=== PATIENT | female | born 1960 | race Caucasian/White ===

== ENCOUNTER 2016-11-08 13:53 | Outpatient (CLI) | payer OTHER ==
--- NOTE | 2016-11-08 16:23 | Ultrasound Report ---
THYROID ULTRASOUND: 11/08/2016 CLINICAL INDICATION: Palpable fullness right thyroid. TECHNIQUE: Real-time scanning was performed with solar sales representative and assessor static images obtained. FINDINGS: The right lobe measures 6.4 x 2.7 x 2.3 cm, and the left lobe measures 6.1 x 2.0 x 1.3 cm. The isthmus is enlarged, measuring 7 mm. In the lower pole of the right lobe, there is a heterogeneo us, predominantly hyperechoic nodule with peripheral vascularity, measuring 2.8 x 1.9 x 1.7 cm. Small cysts are also noted bilaterally. IMPRESSION: HETEROGENEOUS, PREDOMINANTLY HYPERECHOIC NODULE IN THE LOWER POLE OF THE RIGHT LOBE, SMILEY SURING 2.8 CM, WITH PERIPHERAL VASCULARITY. CONSIDER FINE NEEDLE ASPIRATION. JOB #: [id number] EXT JOB #:[id number]
== END 2016-11-08 13:54 | disposition home or self-care (01) ==
LOC: DI 13:53 → MERGE 14:45
PROVIDERS: ATTEND Physician Assistant
DX: E04.1 Nontoxic single thyroid nodule (principal)
CPT/HCPCS: 76536

== ENCOUNTER 2016-12-02 10:55 | Outpatient (CLI) | payer OTHER | END 2016-12-02 10:56 | disposition home or self-care (01) | LOC: SC 10:55 | PROVIDERS: ATTEND Internal Medicine Pulmonary Disease | DX: G47.33 Obstructive sleep apnea (adult) (pediatric) (principal) | CPT/HCPCS: 99203; 99212 ==

== ENCOUNTER 2016-12-31 07:34 | Day surgery (SDC) | payer MEDICARE, OTHER ==
[2016-12-31] MEDS ORDERED: LACTATED RINGERS 1,000 ML IV ONE (08:02)
[2016-12-31] MEDS ORDERED: MIDAZOLAM 2 MG/2 ML VIAL IVP ONE (09:05)
[2016-12-31] MEDS ORDERED: fentaNYL 100 MCG/2 ML VIAL IVP ONE (09:05)
[2016-12-31 09:51] VITALS: BP 103/62
== END 2016-12-31 07:35 | disposition home or self-care (01) ==
LOC: SDS 07:34
PROVIDERS: ATTEND Surgery
PROC: 0DBP8ZX Excision of Rectum, Via Natural or Artificial Opening Endoscopic, Diagnostic (ICD-10-PCS; principal; 2016-12-31 09:00)
DX: Z12.11 Encounter for screening for malignant neoplasm of colon (principal); K62.1 Rectal polyp; E11.9 Type 2 diabetes mellitus without complications; I10 Essential (primary) hypertension; J45.909 Unspecified asthma, uncomplicated; G47.30 Sleep apnea, unspecified; Z87.891 Personal history of nicotine dependence; Z79.84 Long term (current) use of oral hypoglycemic drugs; Z79.82 Long term (current) use of aspirin
CPT/HCPCS: 45380; J7120; 88305

== ENCOUNTER 2017-01-24 19:07 | Outpatient (CLI) | payer MEDICARE, OTHER | END 2017-01-24 19:08 | disposition home or self-care (01) | LOC: SC 19:07 | PROVIDERS: ATTEND Internal Medicine Pulmonary Disease | DX: G47.33 Obstructive sleep apnea (adult) (pediatric) (principal); G47.61 Periodic limb movement disorder | CPT/HCPCS: 95810 ==

== ENCOUNTER 2017-02-11 08:42 | Outpatient (CLI) | payer MEDICARE ==
[2017-02-11] MEDS ORDERED: BUFFERED LIDOCAINE 10 ML SYRINGE IU ONE (09:50)
[2017-02-11 10:19] VITALS: BP 106/66
--- NOTE | 2017-02-11 10:50 | Ultrasound Report ---
ULTRASOUND-GUIDED FINE-NEEDLE ASPIRATION RIGHT THYROID NODULE: 02/11/2017 CLINICAL INDICATION: Right thyroid nodule. FINDINGS: Following obtaining informed consent, the patient's right neck was prepped and draped in t he usual sterile fashion. The skin and soft tissues were anesthetized with lidocaine. Under ultraso und guidance, four 22-gauge fine-needle aspirations were performed. Needle washings were submitted t o Pathology. The patient tolerated the procedure well. No immediate complications. IMPRESSION: FINE-NEEDLE ASPIRATION RIGHT THYROID NODULE. AWAIT PATHOLOGY REPORT. JOB #: [id number] EXT JOB #:[id number]
== END 2017-02-11 08:43 | disposition home or self-care (01) ==
LOC: DI 08:42
PROVIDERS: ATTEND Physician Assistant
DX: E04.9 Nontoxic goiter, unspecified (principal)
CPT/HCPCS: 10022; 76942

== ENCOUNTER 2017-02-17 11:16 | Outpatient (CLI) | payer MEDICARE | END 2017-02-17 11:17 | disposition home or self-care (01) | LOC: SC 11:16 | PROVIDERS: ATTEND Nurse Practitioner Family | DX: G47.33 Obstructive sleep apnea (adult) (pediatric) (principal); G47.61 Periodic limb movement disorder | CPT/HCPCS: 99214; G0463; 99212 ==

== ENCOUNTER 2017-02-26 10:02 | Outpatient (CLI) | payer MEDICARE ==
[2017-02-26 13:23] LABS: BILIRUBIN,URINE NEGATIVE (NEGATIVE)
[2017-02-26 13:51] LABS: UR CULTURE IF IND INDICATED; WBC,URINE >25 /HPF (0-5)
== END 2017-02-26 10:03 | disposition home or self-care (01) ==
LOC: LAB.R 10:02
PROVIDERS: ATTEND Family Medicine
DX: N39.0 Urinary tract infection, site not specified (principal)
CPT/HCPCS: 81001; 87086

== ENCOUNTER 2017-03-12 15:01 | Outpatient (CLI) | payer OTHER ==
[2017-03-12 13:33] LABS: BASOPHILS % (AUTO) 0.6 %; EOSINOPHILS # (AUTO) 0.1 10^3/uL (0.0-0.7); EOSINOPHILS % (AUTO) 1.9 %; HCT - HEMATOCRIT 31.3 % (37.0-47.0); HGB - HEMOGLOBIN 10.4 g/dL (12.0-16.0); LYMPHOCYTES # (AUTO) 1.5 10^3/uL (1.5-3.5); MEAN CORPUSCULAR HEMOGLOBIN 28.4 pg (27.0-31.0); MEAN CORPUSCULAR HGB CONC 33.3 g/dL (32.0-36.0); MEAN CORPUSCULAR VOLUME 85.3 fL (81.0-99.0); MEAN PLATELET VOLUME 8.9 fL (7.9-10.8); MONOCYTES # (AUTO) 0.3 10^3/uL (0.0-1.0); MONOCYTES % (AUTO) 7.2 %; NEUTROPHILS # (AUTO) 2.4 10^3/uL (1.5-6.6); NEUTROPHILS % (AUTO) 55.3 %; RED BLOOD COUNT 3.67 10^6/uL (4.20-5.40); RED CELL DISTRIBUTION WIDTH 16.3 % (12.0-15.0); UNCORRECTED WHITE BLOOD COUNT 4.3 x10^3/uL; WHITE BLOOD COUNT 4.3 x10^3/uL (4.8-10.8)
[2017-03-12 14:12] LABS: THYROID STIMULATING HORMONE 0.53 uIU/mL (0.34-5.60)
[2017-03-12 14:21] LABS: ALBUMIN/GLOBULIN RATIO 1.3 (1.0-2.2); BILIRUBIN,TOTAL 0.3 mg/dL (0.2-1.0); BUN - BLOOD UREA NITROGEN 13 mg/dL (6-20); CALCIUM 9.9 mg/dL (8.5-10.3); CARBON DIOXIDE - CO2 24 mmol/L (21-32); CHLORIDE 106 mmol/L (101-111); CHOL/HDL RATIO 7.3 (<4.4); CHOLESTEROL 241 mg/dL; CREATININE 0.6 mg/dL (0.4-1.0); GFR - MDRD 104 (>89); GLUCOSE 151 mg/dL (70-100); HDL CHOLESTEROL 33 mg/dL; POTASSIUM 4.1 mmol/L (3.5-5.0); SODIUM 140 mmol/L (135-145); TOTAL PROTEIN 7.4 g/dL (6.7-8.2); TRIGLYCERIDES 381 mg/dL; VLDL CHOLESTEROL 76 mg/dL
== END 2017-03-12 15:02 | disposition home or self-care (01) ==
LOC: LAB.N 15:01
PROVIDERS: ATTEND Family Medicine
DX: Z51.81 Encounter for therapeutic drug level monitoring (principal); E78.5 Hyperlipidemia, unspecified; I10 Essential (primary) hypertension; F31.5 Bipolar disorder, current episode depressed, severe, with psychotic features
CPT/HCPCS: 36415; 80053; 80061; 84439; 84443; 85025

== ENCOUNTER 2017-03-30 20:35 | Outpatient (CLI) | payer MEDICARE | END 2017-03-30 20:36 | disposition home or self-care (01) | LOC: SC 20:35 | PROVIDERS: ATTEND Internal Medicine Pulmonary Disease | DX: G47.33 Obstructive sleep apnea (adult) (pediatric) (principal); Z68.29 Body mass index [BMI] 29.0-29.9, adult | CPT/HCPCS: 95811 ==

== ENCOUNTER 2017-04-14 08:46 | Outpatient (CLI) | payer MEDICARE ==
--- NOTE | 2017-04-14 15:29 | Mammography Report ---
DIGITAL DIAGNOSTIC BILATERAL MAMMOGRAM: 04/14/2017 CLINICAL INDICATION: A 56-year-old with lumpectomy and radiation therapy for left breast cancer. COMPARISON: Films from [place], [place], dated 03/23/2016, 07/10/2014, . TECHNIQUE: Bilateral CC, true lateral and MLO views, left spot magnification views. FINDINGS: The breasts again demonstrate scattered fibroglandular densities bilaterally. Postoperative and post-treatment changes are noted in the left breast. In the right outer posterior breast, there is a circumscribed 7 mm nodule, which is now palpable. Further evaluation with right breast ultrasound is recommended. IMPRESSION: INCOMPLETE EXAMINATION. RECOMMENDATION: ADDITIONAL EVALUATION OF THE PALPABLE ABNORMALITY IN THE RIGHT BREAST WITH ULTRASOUND. BIRADS CATEGORY 0-INCOMPLETE. STANDARD QUALIFYING STATEMENTS 1. This examination was reviewed with the aid of Computer-Aided Detection (CAD). 2. A negative or benign imaging report should not delay biopsy if clinically suspicious findings are present. Consider surgical consultation if warranted. More than 5% of cancers are not identified by imaging. 3. Dense breasts may obscure an underlying neoplasm. JOB #: [id number] EXT JOB #: [id number] CURT
== END 2017-04-14 08:47 | disposition home or self-care (01) ==
LOC: DI 08:46
PROVIDERS: ATTEND Internal Medicine Hematology & Oncology
DX: C50.112 Malignant neoplasm of central portion of left female breast (principal); N63.11 Unspecified lump in the right breast, upper outer quadrant
CPT/HCPCS: 77066

== ENCOUNTER 2017-04-16 09:44 | Outpatient (CLI) | payer MEDICARE ==
--- NOTE | 2017-04-16 14:30 | Ultrasound Report ---
RIGHT BREAST ULTRASOUND: 04/16/2017 CLINICAL INDICATION: Palpable abnormality, history of left breast cancer. COMPARISON: Mammogram of 04/14/2017. TECHNIQUE: Real-time scanning was performed with manufacturer representative static images obtained. FINDINGS: Ultrasound of the palpable abnormality identified by the patient was performed. At this site, there is a sebaceous cyst, measuring 6 x 5 x 4 mm. No sonographically suspicious findings are identified. IMPRESSION: SEBACEOUS CYST, ACCOUNTING FOR THE PALPABLE AND MAMMOGRAPHIC ABNORMALITY. RECOMMENDATION: ROUTINE ANNUAL MAMMOGRAPHY UNLESS OTHERWISE CLINICALLY INDICATED. BIRADS CATEGORY 2-BENIGN FINDINGS. MTDD
== END 2017-04-16 09:45 | disposition home or self-care (01) ==
LOC: DI 09:44
PROVIDERS: ATTEND Internal Medicine Hematology & Oncology
DX: N60.81 Other benign mammary dysplasias of right breast (principal); Z85.3 Personal history of malignant neoplasm of breast
CPT/HCPCS: 76642

== ENCOUNTER 2017-04-30 13:58 | Outpatient (CLI) | payer MEDICARE | END 2017-04-30 13:59 | disposition home or self-care (01) | LOC: SC 13:58 | PROVIDERS: ATTEND Nurse Practitioner Family | DX: G47.33 Obstructive sleep apnea (adult) (pediatric) (principal) | CPT/HCPCS: 99214; G0463; 99212 ==

== ENCOUNTER 2017-06-23 08:51 | Outpatient (CLI) | payer MEDICARE ==
[2017-06-23 13:13] LABS: ALBUMIN/GLOBULIN RATIO 1.2 (1.0-2.2); BILIRUBIN,TOTAL 0.7 mg/dL (0.2-1.0); CALCIUM 9.4 mg/dL (8.5-10.3); CREATININE 0.7 mg/dL (0.4-1.0); TOTAL PROTEIN 7.3 g/dL (6.7-8.2)
[2017-06-23 13:17] LABS: THYROID STIMULATING HORMONE 2.22 uIU/mL (0.34-5.60)
[2017-06-23 13:19] LABS: FREE T4 (FREE THYROXINE) 2.59 ng/dL (0.58-1.64)
[2017-06-23 13:26] LABS: HB2 TOTAL 11.3 g/dL; HEMOGLOBIN A1C 0.51 g/dL; HEMOGLOBIN A1C % 6.3 % (4.6-6.2)
== END 2017-06-23 08:52 | disposition home or self-care (01) ==
LOC: LAB.N 08:51
PROVIDERS: ATTEND Family Medicine
DX: E11.9 Type 2 diabetes mellitus without complications (principal); E78.5 Hyperlipidemia, unspecified; I10 Essential (primary) hypertension; E03.9 Hypothyroidism, unspecified
CPT/HCPCS: 36415; 80053; 83036; 84439; 84443; 84481

== ENCOUNTER 2017-07-17 13:10 | Outpatient (CLI) | payer MEDICARE | END 2017-07-17 13:11 | disposition home or self-care (01) | LOC: SC 13:10 | PROVIDERS: ATTEND Nurse Practitioner Family | DX: G47.33 Obstructive sleep apnea (adult) (pediatric) (principal) | CPT/HCPCS: 99214; G0463; 99212 ==

== ENCOUNTER 2017-07-21 17:40 | Outpatient (CLI) | payer MEDICARE ==
[2017-07-21 13:17] LABS: CALCIUM 10.6 mg/dL (8.5-10.3); CREATININE 0.8 mg/dL (0.4-1.0)
[2017-07-21 13:19] LABS: THYROID STIMULATING HORMONE 1.26 uIU/mL (0.34-5.60)
[2017-07-21 13:21] LABS: FREE T4 (FREE THYROXINE) 2.55 ng/dL (0.58-1.64)
== END 2017-07-21 17:41 | disposition home or self-care (01) ==
LOC: LAB.N 17:40
PROVIDERS: ATTEND Family Medicine
DX: E05.90 Thyrotoxicosis, unspecified without thyrotoxic crisis or storm (principal); E04.9 Nontoxic goiter, unspecified; E87.6 Hypokalemia
CPT/HCPCS: 36415; 80048; 81599; 84439; 84443; 84445; 84481; 86376; 86800

== ENCOUNTER 2017-08-04 13:39 | Outpatient (CLI) | payer MEDICARE ==
[2017-08-04 19:34] LABS: THYROID STIMULATING HORMONE 0.95 uIU/mL (0.34-5.60)
[2017-08-04 19:36] LABS: FREE T4 (FREE THYROXINE) 0.6 ng/dL (0.58-1.64)
== END 2017-08-04 13:40 | disposition home or self-care (01) ==
LOC: LAB.N 13:39
PROVIDERS: ATTEND Internal Medicine Endocrinology, Diabetes & Metabolism
DX: R94.6 Abnormal results of thyroid function studies (principal)
CPT/HCPCS: 36415; 84439; 84443; 84481

== ENCOUNTER 2017-09-12 08:00 | Outpatient (CLI) | payer MEDICARE ==
[2017-09-12 18:47] LABS: BILIRUBIN,URINE NEGATIVE (NEGATIVE); GLUCOSE, URINE (UA) >=1000 mg/dL (NEGATIVE); KETONES,URINE (UA) 15 mg/dL (NEGATIVE); LEUKOCYTE ESTERASE, URINE NEGATIVE (NEGATIVE); NITRITE,URINE POSITIVE (NEGATIVE); OCCULT BLOOD,URINE TRACE-INTA (NEGATIVE); PROTEIN,URINE NEGATIVE (NEGATIVE); UROBILINOGEN,URINE 0.2 (NORMAL) E.U./dL (NORMAL)
[2017-09-12 19:05] LABS: BACTERIA,URINE Moderate /HPF (None Seen); CLARITY,URINE CLOUDY (CLEAR); SQUAMOUS EPITHELIAL CELL,UR RARE Squamous (<= Few)
== END 2017-09-12 08:01 | disposition home or self-care (01) ==
LOC: LAB.R 08:00
PROVIDERS: ATTEND Nurse Practitioner
DX: N39.0 Urinary tract infection, site not specified (principal); R30.0 Dysuria; R81 Glycosuria
CPT/HCPCS: 81001; 87077; 87086

== ENCOUNTER 2017-09-16 22:32 | Emergency (ER) | payer MEDICARE ==
[2017-09-16 23:04] LABS: BASOPHILS # (AUTO) 0.1 10^3/uL (0.0-0.1); BASOPHILS % (AUTO) 1.1 %; EOSINOPHILS # (AUTO) 0.1 10^3/uL (0.0-0.7); EOSINOPHILS % (AUTO) 1.5 %; HGB - HEMOGLOBIN 10.8 g/dL (12.0-16.0); LYMPHOCYTES # (AUTO) 1.6 10^3/uL (1.5-3.5); LYMPHOCYTES % (AUTO) 33.6 %; MEAN CORPUSCULAR HEMOGLOBIN 27.4 pg (27.0-31.0); MEAN CORPUSCULAR HGB CONC 32.6 g/dL (32.0-36.0); MEAN PLATELET VOLUME 8.8 fL (7.9-10.8); MONOCYTES # (AUTO) 0.3 10^3/uL (0.0-1.0); MONOCYTES % (AUTO) 7.3 %; NEUTROPHILS # (AUTO) 2.7 10^3/uL (1.5-6.6); NEUTROPHILS % (AUTO) 56.5 %; PLT - PLATELET COUNT 208 10^3/uL (130-450); RED BLOOD COUNT 3.96 10^6/uL (4.20-5.40); RED CELL DISTRIBUTION WIDTH 16.4 % (12.0-15.0); WHITE BLOOD COUNT 4.8 x10^3/uL (4.8-10.8)
[2017-09-16 23:05] LABS: VBG PCO2 45.1 mmHg (41-51); VBG PH 7.411 (7.31-7.41)
[2017-09-16 23:06] LABS: VBG BASE EXCESS 2.9 mmol/L (-2 - +2); VBG PO2 37.8 mmHg (25-47); VBG TOTAL CO2 29.4 mmol/L (24-29)
[2017-09-16] MEDS ORDERED: SODIUM CHLORIDE 0.9% 1,000 ML IV ONE (23:08)
[2017-09-16 23:13] LABS: KETONES, SERUM (ACETEST) NEGATIVE (NEGATIVE)
[2017-09-16 23:17] LABS: ALBUMIN 3.9 g/dL (3.2-5.5); ALBUMIN/GLOBULIN RATIO 1.1 (1.0-2.2); ALKALINE PHOSPHATASE 65 IU/L (42-121); ALT ALANINE AMINOTRANSFERASE 32 IU/L (10-60); AST ASPARTATE AMINOTRANSFERASE 54 IU/L (10-42); BILIRUBIN,TOTAL 0.5 mg/dL (0.2-1.0); BUN - BLOOD UREA NITROGEN 13 mg/dL (6-20); CALCIUM 9.6 mg/dL (8.5-10.3); CARBON DIOXIDE - CO2 28 mmol/L (21-32); CHLORIDE 91 mmol/L (101-111); CREATININE 0.7 mg/dL (0.4-1.0); GFR - MDRD 87 (>89); GLUCOSE 405 mg/dL (70-100); LIPASE 38 U/L (22-51); SODIUM 131 mmol/L (135-145); TOTAL PROTEIN 7.3 g/dL (6.7-8.2)
[2017-09-16] MEDS ORDERED: INSULIN REGULAR HUMAN 100 UNIT/1 ML 10 ML MDV IVP STA (23:43)
[2017-09-17] MEDS ORDERED: SODIUM CHLORIDE 0.9% 1,000 ML IV ONE (01:22)
[2017-09-17] MEDS ORDERED: INSULIN REGULAR HUMAN 100 UNIT/1 ML 10 ML MDV IVP STA (01:22)
--- NOTE | 2017-09-17 01:22 | ED Physician Documentation ---
History of Present Illness - Stated complaint Stated Complaint: HIGH BLOOD SUGAR - Chief complaint Chief Complaint: General - History obtained from History obtained from: Patient, Family - History of Present Illness Timing: How many days ago (5) - Additonal information Additional information: 56-year-old type II diabetic has developed elevated blood sugar in the 500 range for the past 5 days. She is now not feeling well. She is feeling lightheaded and dizzy. She has had urinary tract infection and has been placed on antibiotic and she is taking metformin as well. She is not on insulin she is not on any other oral agents. She has been drinking a lot of water. Review of Systems Constitutional: reports: Fatigue. denies: Fever Eyes: denies: Decreased vision Ears: denies: Ear pain Nose: denies: Rhinorrhea / runny nose, Congestion Throat: denies: Sore throat Cardiac: denies: Chest pain / pressure, Palpitations Respiratory: denies: Dyspnea, Cough GI: denies: Abdominal Pain, Nausea, Vomiting : reports: Dysuria Skin: denies: Rash Musculoskeletal: denies: Neck pain, Back pain, Extremity pain Neurologic: reports: Generalized weakness, Near syncope. denies: Focal weakness , Numbness PD PAST MEDICAL HISTORY - Past Medical History Past Medical History: Yes Cardiovascular: Hypertension, High cholesterol Endocrine/Autoimmune: Type 2 diabetes Psych: Bipolar disorder - Past Surgical History /BACKGROUND CHECK COORDINATOR: section, Tubal ligation, Hysterectomy, Other - Present Medications Home Medications: Ambulatory Orders Medication Instructions Recorded Confirmed Acyclovir 200 mg PO DAILY 12/24/16 05/13/17 Aspirin [Aspirin EC] 81 mg PO DAILY 12/24/16 05/13/17 Benztropine Mesylate 1 mg PO BID 12/24/16 05/13/17 Biotin 10,000 mcg PO DAILY 12/24/16 05/13/17 Bupropion HCl [Bupropion Xl] 1 tab ORAL DAILY 12/24/16 05/13/17 Cholecalciferol [Vitamin D3] 5,000 unit PO DAILY 12/24/16 05/13/17 Cranberry Fruit Extract [Cranberry] 4,200 mg PO DAILY 12/24/16 05/13/17 Fenofibrate 160 mg PO DAILY 12/24/16 05/13/17 Fluticasone [Flonase] 1 sprays AARON DAILY 12/24/16 05/13/17 Gemfibrozil 600 mg PO BID 12/24/16 05/13/17 Krill/[place]-3/Dha/Epa/Lipids 1,085 mg PO DAILY 12/24/16 05/13/17 [Krill Oil 300 mg Softgel] Metformin HCl 1,000 mg PO BID 12/24/16 05/13/17 Oxcarbazepine [Trileptal] 600 mg PO BID 12/24/16 05/13/17 clonazePAM [Clonazepam] 1 mg PO PRN PRN 12/24/16 05/13/17 hydroCHLOROthiazide 25 mg PO DAILY 12/24/16 05/13/17 [Hydrochlorothiazide] risperiDONE [Risperidone] 3 mg PO BID 12/24/16 05/13/17 Anastrozole 1 mg PO DAILY 02/25/17 05/13/17 Metoprolol Succinate/Hctz 1 tab PO DAILY 05/13/17 05/13/17 [Metoprolol ER-Hctz 50-12.5 mg] Blood Sugar Diagnostic [Glucose 1 each MC DAILY #50 strip 09/17/17 Test Strip] - Allergies Allergies/Adverse Reactions: Allergies Allergy/AdvReac Type Severity Reaction Status Date / Time meperidine HCl * AdvReac Itching Verified 12/31/16 08:00 [From Demerol] - Social History Does the pt smoke?: No Smoking Status: Never smoker Does the pt drink ETOH?: No Does the pt have substance abuse?: No - Immunizations Immunizations are current?: Yes PD ED PE NORMAL - Vitals Vital signs reviewed: Yes (Tachycardic) - General General: Alert and oriented X 3, No acute distress, Well developed/nourished - HEENT HEENT: Atraumatic, PERRL, EOMI, Ears normal, Other (Dry mucous membranes) - Neck Neck: Supple, no meningeal sign, No bony TTP - Cardiac Cardiac: No murmur, Other (Tachycardic and regular) - Respiratory Respiratory: No respiratory distress, Clear bilaterally - Abdomen Abdomen: Soft, Non tender - Back Back: No CVA TTP, No spinal TTP - Derm Derm: Normal color, Warm and dry, No rash - Extremities Extremities: No deformity, No edema - Neuro Neuro: No motor deficit, No sensory deficit Eye Opening: Spontaneous Motor: Obeys Commands Verbal: Oriented GCS Score: 15 - Psych Psych: Normal mood, Normal affect Results - Vitals Vitals: Vital Signs - 24 hr 09/16/17 09/16/17 09/17/17 22:35 23:38 01:37 Temperature 36.1 C L Heart Rate 104 H 95 96 Respiratory 18 25 H 18 Rate Blood Pressure 120/65 116/70 126/73 O2 Saturation 98 97 97 09/17/17 02:36 Temperature Heart Rate 95 Respiratory 16 Rate Blood Pressure 113/68 O2 Saturation 98 Oxygen O2 Source Room air - Labs Labs: Laboratory Tests 09/16/17 09/16/17 09/16/17 22:44 22:56 22:56 WBC 4.8 RBC 3.96 L Hgb 10.8 L Hct 33.2 L MCV 84.0 MCH 27.4 MCHC 32.6 RDW 16.4 H Plt Count 208 MPV 8.8 Neut # 2.7 Lymph # 1.6 [place] # 0.3 Eos # 0.1 Baso # 0.1 Absolute Nucleated RBC 0.00 Nucleated RBC % 0.1 VBG pH VBG pCO2 VBG pO2 VBG HCO3 VBG Total CO2 VBG O2 Saturation VBG Base Excess Sodium 131 L Potassium 3.1 L Chloride 91 L Carbon Dioxide 28 Anion Gap 12.0 BUN 13 Creatinine 0.7 Estimated GFR (MDRD) 87 L Glucose 405 H POC Whole Bld Glucose 416 H Calcium 9.6 Total Bilirubin 0.5 AST 54 H ALT 32 Alkaline Phosphatase 65 Total Protein 7.3 Albumin 3.9 Globulin 3.4 Albumin/Globulin Ratio 1.1 Lipase 38 Urine Color Urine Clarity Urine pH Ur Specific [place] Urine Protein Urine Glucose (UA) Urine Ketones Urine Occult Blood Urine Nitrite Urine Bilirubin Urine Urobilinogen Ur Leukocyte Esterase Ur Microscopic Review Urine Culture Comments Serum Ketones NEGATIVE 09/16/17 09/17/17 09/17/17 22:56 01:19 02:33 WBC RBC Hgb Hct MCV MCH MCHC RDW Plt Count MPV Neut # Lymph # [place] # Eos # Baso # Absolute Nucleated RBC Nucleated RBC % VBG pH 7.411 H VBG pCO2 45.1 VBG pO2 37.8 VBG HCO3 28.0 VBG Total CO2 29.4 H VBG O2 Saturation 73.7 VBG Base Excess 2.9 H Sodium Potassium Chloride Carbon Dioxide Anion Gap BUN Creatinine Estimated GFR (MDRD) Glucose POC Whole Bld Glucose 224 H 140 H Calcium Total Bilirubin AST ALT Alkaline Phosphatase Total Protein Albumin Globulin Albumin/Globulin Ratio Lipase Urine Color Urine Clarity Urine pH Ur Specific [place] Urine Protein Urine Glucose (UA) Urine Ketones Urine Occult Blood Urine Nitrite Urine Bilirubin Urine Urobilinogen Ur Leukocyte Esterase Ur Microscopic Review Urine Culture Comments Serum Ketones 09/17/17 02:40 WBC RBC Hgb Hct MCV MCH MCHC RDW Plt Count MPV Neut # Lymph # [place] # Eos # Baso # Absolute Nucleated RBC Nucleated RBC % VBG pH VBG pCO2 VBG pO2 VBG HCO3 VBG Total CO2 VBG O2 Saturation VBG Base Excess Sodium Potassium Chloride Carbon Dioxide Anion Gap BUN Creatinine Estimated GFR (MDRD) Glucose POC Whole Bld Glucose Calcium Total Bilirubin AST ALT Alkaline Phosphatase Total Protein Albumin Globulin Albumin/Globulin Ratio Lipase Urine Color YELLOW Urine Clarity CLEAR Urine pH 7.0 Ur Specific [place] 1.015 Urine Protein NEGATIVE Urine Glucose (UA) >=1000 H Urine Ketones TRACE Urine Occult Blood NEGATIVE Urine Nitrite NEGATIVE Urine Bilirubin NEGATIVE Urine Urobilinogen 0.2 (NORMAL) Ur Leukocyte Esterase NEGATIVE Ur Microscopic Review NOT INDICATED Urine Culture Comments NOT INDICATED Serum Ketones Procedures - IVC sono (time) 0010 Bedside IVC sono: IVC measures (cm) (0.77), Significant dehydration (est 3 liter deficit) PD MEDICAL DECISION MAKING - ED course Complexity details: reviewed results, re-evaluated patient, considered differential, d/w patient ED course: 56-year-old type II diabetic with markedly elevated blood sugar has developed hyperglycemic-induced hypovolemia. She is administered normal saline and insulin in 2 separate aliquots of 1 L of saline and 10 units of regular insulin intravenously. Her blood sugar comes down nicely to the 140 range. 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
[2017-09-17 02:37] VITALS: BP 113/68
[2017-09-17 02:55] LABS: BILIRUBIN,URINE NEGATIVE (NEGATIVE); GLUCOSE, URINE (UA) >=1000 mg/dL (NEGATIVE); KETONES,URINE (UA) TRACE mg/dL (NEGATIVE); LEUKOCYTE ESTERASE, URINE NEGATIVE (NEGATIVE); NITRITE,URINE NEGATIVE (NEGATIVE); OCCULT BLOOD,URINE NEGATIVE (NEGATIVE); PROTEIN,URINE NEGATIVE (NEGATIVE); UROBILINOGEN,URINE 0.2 (NORMAL) E.U./dL (NORMAL)
[2017-09-17 03:03] LABS: CLARITY,URINE CLEAR (CLEAR)
== END 2017-09-17 03:14 | disposition home or self-care (01) ==
LOC: ED 22:32
DX: E86.0 Dehydration (principal); E11.65 Type 2 diabetes mellitus with hyperglycemia; I10 Essential (primary) hypertension; E78.00 Pure hypercholesterolemia, unspecified; Z79.82 Long term (current) use of aspirin; Z79.84 Long term (current) use of oral hypoglycemic drugs
CPT/HCPCS: 36415; 80053; 81003; 82009; 82803; 83690; 85025; 96360; 96361; 99284; J1815; 81001; 87086

== ENCOUNTER 2017-09-24 13:17 | Outpatient (CLI) | payer MEDICARE ==
[2017-09-24 19:12] LABS: CALCIUM 9.8 mg/dL (8.5-10.3); CREATININE 0.5 mg/dL (0.4-1.0)
[2017-09-24 19:20] LABS: HEMOGLOBIN A1C 0.79 g/dL; HEMOGLOBIN A1C % 8.2 % (4.6-6.2)
== END 2017-09-24 13:18 | disposition home or self-care (01) ==
LOC: LAB.N 13:17
PROVIDERS: ATTEND Family Medicine
DX: E11.9 Type 2 diabetes mellitus without complications (principal); Z79.4 Long term (current) use of insulin
CPT/HCPCS: 36415; 80048; 83036

== ENCOUNTER 2017-10-22 13:17 | Outpatient (CLI) | payer MEDICARE | END 2017-10-22 13:18 | disposition home or self-care (01) | LOC: SC 13:17 | PROVIDERS: ATTEND Nurse Practitioner Family | DX: G47.33 Obstructive sleep apnea (adult) (pediatric) (principal); I10 Essential (primary) hypertension; E11.9 Type 2 diabetes mellitus without complications; F39 Unspecified mood [affective] disorder; F41.8 Other specified anxiety disorders | CPT/HCPCS: 99214; G0463; 99212 ==

== ENCOUNTER 2017-12-25 10:20 | Outpatient (CLI) | payer MEDICARE ==
[2017-12-25 12:45] LABS: CALCIUM 10.1 mg/dL (8.5-10.3); CREATININE 0.6 mg/dL (0.4-1.0)
[2017-12-25 12:56] LABS: HB2 TOTAL 12.1 g/dL; HEMOGLOBIN A1C 0.51 g/dL
== END 2017-12-25 10:21 ==
LOC: LAB.N 10:20
PROVIDERS: ATTEND Family Medicine
DX: E11.65 Type 2 diabetes mellitus with hyperglycemia (principal)
CPT/HCPCS: 36415; 80048; 83036

== ENCOUNTER 2018-04-15 12:47 | Outpatient (CLI) | payer MEDICARE ==
[2018-04-15 13:27] LABS: HB2 TOTAL 11.7 g/dL; HEMOGLOBIN A1C 0.57 g/dL; HEMOGLOBIN A1C % 6.6 % (4.6-6.2)
[2018-04-15 13:33] LABS: ALBUMIN 4.1 g/dL (3.2-5.5); ALBUMIN/GLOBULIN RATIO 1.3 (1.0-2.2); ALKALINE PHOSPHATASE 67 IU/L (42-121); ALT ALANINE AMINOTRANSFERASE 24 IU/L (10-60); AST ASPARTATE AMINOTRANSFERASE 25 IU/L (10-42); BILIRUBIN,TOTAL 0.6 mg/dL (0.2-1.0); BUN - BLOOD UREA NITROGEN 10 mg/dL (6-20); CALCIUM 9.3 mg/dL (8.5-10.3); CARBON DIOXIDE - CO2 25 mmol/L (21-32); CHLORIDE 103 mmol/L (101-111); CHOL/HDL RATIO 6.6 (<4.4); CHOLESTEROL 226 mg/dL; CREATININE 0.4 mg/dL (0.4-1.0); GFR - MDRD 166 (>89); GLUCOSE 165 mg/dL (70-100); HDL CHOLESTEROL 34 mg/dL; LDL CHOLESTEROL,CALCULATED 114 mg/dL; LDL/HDL RATIO 3.4 (<4.4); SODIUM 139 mmol/L (135-145); TOTAL PROTEIN 7.3 g/dL (6.7-8.2); VLDL CHOLESTEROL 78 mg/dL
== END 2018-04-15 12:48 ==
LOC: LAB.N 12:47
PROVIDERS: ATTEND Family Medicine
DX: E78.1 Pure hyperglyceridemia (principal); E11.9 Type 2 diabetes mellitus without complications
CPT/HCPCS: 36415; 80053; 80061; 83036; 83721

== ENCOUNTER 2018-05-20 12:40 | Outpatient (CLI) | payer MEDICARE ==
--- NOTE | 2018-05-20 13:17 | Mammography Report ---
Reason: L BREAST CANCER Procedure Date: 05/20/2018 Accession Number: [id number] / [id number] Procedure: JONAH - Diagnostic Dig Bilat CPT Code: FULL RESULT: EXAM: Diagnostic Dig Bilat DATE: 05/20/2018 1:10 PM CLINICAL HISTORY: History of treated left breast cancer in 2016 status post lumpectomy for post lumpectomy surveillance. Screening right breast mammogram. TECHNIQUE: Bilateral CC and MLO views were obtained. COMPARISON: 04/14/2017 FINDINGS: The breasts demonstrate scattered fibroglandular densities bilaterally. Left breast: There are stable and expected post lumpectomy changes from the posterior lateral left breast; there is stable mild skin thickening consistent with post treatment changes. There are no suspicious masses, calcifications or areas of nonoperative distortion. Right breast: There are no suspicious masses, calcifications or areas of distortion. IMPRESSION: Stable and expected post lumpectomy changes left breast; negative right breast. Benign findings. RECOMMENDATION: 1. Left breast: Diagnostic mammogram in one year is recommended to continue postlumpectomy surveillance protocol. This can be performed to coincide with contralateral screening. 2. Right breast: Annual screening mammogram. BI-RADS CATEGORY 2: Benign findings STANDARD QUALIFYING STATEMENTS: 1. This examination was not reviewed with the aid of Computer-Aided Detection (CAD). 2. A negative or benign imaging report should not preclude biopsy if clinically suspicious findings are present. 3. Dense breasts may obscure an underlying neoplasm. 4. This examination was reviewed with the aid of 3D breast imaging (tomosynthesis).
== END 2018-05-20 12:41 | disposition home or self-care (01) ==
LOC: DI 12:40
PROVIDERS: ATTEND Internal Medicine Hematology & Oncology
DX: C50.912 Malignant neoplasm of unspecified site of left female breast (principal)
CPT/HCPCS: 77066

== ENCOUNTER 2018-05-27 14:55 | Outpatient (CLI) | payer MEDICARE | END 2018-05-27 23:59 | disposition home or self-care (01) | LOC: RT.N 14:55 | PROVIDERS: ATTEND Family Medicine | DX: R00.2 Palpitations (principal) | CPT/HCPCS: 93005 ==

== ENCOUNTER 2018-05-28 08:00 | Outpatient (CLI) | payer MEDICARE ==
[2018-05-28 12:24] LABS: ALBUMIN 4.2 g/dL (3.2-5.5); ALBUMIN/GLOBULIN RATIO 1.4 (1.0-2.2); BILIRUBIN,TOTAL 0.6 mg/dL (0.2-1.0); CALCIUM 9.4 mg/dL (8.5-10.3); CREATININE 0.6 mg/dL (0.4-1.0); TOTAL PROTEIN 7.2 g/dL (6.7-8.2)
[2018-05-28 12:36] LABS: BASOPHILS % (AUTO) 0.7 %; EOSINOPHILS # (AUTO) 0.2 10^3/uL (0.0-0.7); EOSINOPHILS % (AUTO) 2.9 %; HGB - HEMOGLOBIN 11.4 g/dL (12.0-16.0); LYMPHOCYTES # (AUTO) 1.8 10^3/uL (1.5-3.5); LYMPHOCYTES % (AUTO) 31.9 %; MEAN CORPUSCULAR HEMOGLOBIN 26.6 pg (27.0-31.0); MEAN CORPUSCULAR HGB CONC 32.8 g/dL (32.0-36.0); MEAN CORPUSCULAR VOLUME 81.2 fL (81.0-99.0); MEAN PLATELET VOLUME 9.4 fL (7.9-10.8); MONOCYTES # (AUTO) 0.4 10^3/uL (0.0-1.0); MONOCYTES % (AUTO) 7.3 %; NEUTROPHILS # (AUTO) 3.2 10^3/uL (1.5-6.6); NEUTROPHILS % (AUTO) 57.2 %; PLT - PLATELET COUNT 220 10^3/uL (130-450); RED BLOOD COUNT 4.26 10^6/uL (4.20-5.40); RED CELL DISTRIBUTION WIDTH 16.1 % (12.0-15.0); WHITE BLOOD COUNT 5.6 x10^3/uL (4.8-10.8)
[2018-05-28 12:48] LABS: THYROID STIMULATING HORMONE 1.71 uIU/mL (0.34-5.60)
[2018-05-28 12:50] LABS: FREE T4 (FREE THYROXINE) 0.56 ng/dL (0.58-1.64)
== END 2018-05-28 23:59 | disposition home or self-care (01) ==
LOC: LAB.N 08:00
PROVIDERS: ATTEND Family Medicine
DX: R00.2 Palpitations (principal); E05.90 Thyrotoxicosis, unspecified without thyrotoxic crisis or storm; E11.9 Type 2 diabetes mellitus without complications
CPT/HCPCS: 36415; 80053; 84439; 84443; 84481; 85025

== ENCOUNTER 2018-07-17 08:40 | Outpatient (CLI) | payer MEDICARE ==
[2018-07-17 13:34] LABS: BASOPHILS % (AUTO) 0.6 %; EOSINOPHILS # (AUTO) 0.2 10^3/uL (0.0-0.7); EOSINOPHILS % (AUTO) 2.7 %; HGB - HEMOGLOBIN 11.4 g/dL (12.0-16.0); LYMPHOCYTES # (AUTO) 1.6 10^3/uL (1.5-3.5); LYMPHOCYTES % (AUTO) 28.4 %; MEAN CORPUSCULAR HEMOGLOBIN 25.9 pg (27.0-31.0); MEAN CORPUSCULAR HGB CONC 31.9 g/dL (32.0-36.0); MEAN PLATELET VOLUME 9.4 fL (7.9-10.8); MONOCYTES # (AUTO) 0.4 10^3/uL (0.0-1.0); MONOCYTES % (AUTO) 6.9 %; NEUTROPHILS # (AUTO) 3.6 10^3/uL (1.5-6.6); NEUTROPHILS % (AUTO) 61.4 %; PLT - PLATELET COUNT 196 10^3/uL (130-450); RED BLOOD COUNT 4.41 10^6/uL (4.20-5.40); RED CELL DISTRIBUTION WIDTH 16.2 % (12.0-15.0); WHITE BLOOD COUNT 5.8 x10^3/uL (4.8-10.8)
[2018-07-17 14:26] LABS: ALBUMIN/GLOBULIN RATIO 1.2 (1.0-2.2); BILIRUBIN,TOTAL 0.6 mg/dL (0.2-1.0); CALCIUM 9.5 mg/dL (8.5-10.3); CREATININE 0.5 mg/dL (0.4-1.0); TOTAL PROTEIN 7.3 g/dL (6.7-8.2)
[2018-07-17 15:00] LABS: HB2 TOTAL 12.3 g/dL; HEMOGLOBIN A1C 0.54 g/dL; HEMOGLOBIN A1C % 6.2 % (4.6-6.2)
== END 2018-07-17 23:59 | disposition home or self-care (01) ==
LOC: LAB.N 08:40
PROVIDERS: ATTEND Physician Assistant Medical
DX: E11.9 Type 2 diabetes mellitus without complications (principal); E78.5 Hyperlipidemia, unspecified; I10 Essential (primary) hypertension; E03.9 Hypothyroidism, unspecified
CPT/HCPCS: 36415; 80053; 83036; 84443; 85025

== ENCOUNTER 2018-08-10 08:58 | Outpatient (CLI) | payer MEDICARE | END 2018-08-10 08:59 | disposition home or self-care (01) | LOC: SC 08:58 | PROVIDERS: ATTEND Nurse Practitioner Family | DX: G47.33 Obstructive sleep apnea (adult) (pediatric) (principal); G47.00 Insomnia, unspecified | CPT/HCPCS: 99214; G0463; 99212 ==

== ENCOUNTER 2018-10-27 08:00 | Outpatient (CLI) | payer MEDICARE ==
[2018-10-27 14:23] LABS: HB2 TOTAL 11.7 g/dL; HEMOGLOBIN A1C 0.61 g/dL; HEMOGLOBIN A1C % 6.9 % (4.6-6.2)
== END 2018-10-27 23:59 | disposition home or self-care (01) ==
LOC: LAB.N 08:00
PROVIDERS: ATTEND Physician Assistant Medical
DX: E11.9 Type 2 diabetes mellitus without complications (principal); Z79.4 Long term (current) use of insulin
CPT/HCPCS: 36415; 83036

== ENCOUNTER 2018-11-13 09:43 | Outpatient (CLI) | payer MEDICARE, OTHER | END 2018-11-13 09:44 | disposition home or self-care (01) | LOC: NS 09:43 | PROVIDERS: ATTEND Physician Assistant Medical | DX: Z71.3 Dietary counseling and surveillance (principal); E11.9 Type 2 diabetes mellitus without complications; E78.2 Mixed hyperlipidemia; E66.9 Obesity, unspecified; Z68.30 Body mass index [BMI] 30.0-30.9, adult | CPT/HCPCS: 97802 ==

== ENCOUNTER 2018-11-18 19:46 | Emergency (ER) | payer OTHER, MEDICARE ==
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
[2018-11-18] MEDS ORDERED: METHOCARBAMOL 500 MG TABLET PO STA (21:11)
[2018-11-18] MEDS ORDERED: HYDROcod/ACETAM 5/325 MG TABLET PO STA (21:11)
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
[2018-11-18] MEDS ORDERED: HYDROcod/ACET 5/325 Prepack 4 PO STA (22:26)
[2018-11-18 22:47] VITALS: BP 110/70
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
== END 2018-11-18 22:45 | disposition home or self-care (01) ==
LOC: ED 19:46
DX: S23.3XXA Sprain of ligaments of thoracic spine, initial encounter (principal); S16.1XXA Strain of muscle, fascia and tendon at neck level, initial encounter; V49.49XA Driver injured in collision with other motor vehicles in traffic accident, initial encounter; Y92.410 Unspecified street and highway as the place of occurrence of the external cause; I10 Essential (primary) hypertension; E78.00 Pure hypercholesterolemia, unspecified; G47.30 Sleep apnea, unspecified; E11.9 Type 2 diabetes mellitus without complications; E05.90 Thyrotoxicosis, unspecified without thyrotoxic crisis or storm; Z79.82 Long term (current) use of aspirin; Z79.4 Long term (current) use of insulin
CPT/HCPCS: 72125; 72128; 99283; A9270

== ENCOUNTER 2018-12-24 12:53 | Outpatient (CLI) | payer MEDICARE | END 2018-12-24 12:54 | disposition home or self-care (01) | LOC: NS 12:53 | PROVIDERS: ATTEND Physician Assistant Medical | DX: Z71.3 Dietary counseling and surveillance (principal); E11.69 Type 2 diabetes mellitus with other specified complication; E66.9 Obesity, unspecified; Z68.31 Body mass index [BMI] 31.0-31.9, adult | CPT/HCPCS: 97803 ==

== ENCOUNTER 2019-01-29 08:00 | Outpatient (CLI) | payer MEDICARE ==
[2019-01-29 13:38] LABS: HB2 TOTAL 10.7 g/dL; HEMOGLOBIN A1C 0.48 g/dL; HEMOGLOBIN A1C % 6.3 % (4.6-6.2)
== END 2019-01-29 23:59 | disposition home or self-care (01) ==
LOC: LAB.N 08:00
PROVIDERS: ATTEND Physician Assistant Medical
DX: Z79.4 Long term (current) use of insulin (principal); E11.9 Type 2 diabetes mellitus without complications
CPT/HCPCS: 36415; 83036

== ENCOUNTER 2019-02-02 08:00 | Outpatient (CLI) | payer MEDICARE ==
[2019-02-02 19:27] LABS: CREATININE,URINE 119.6 mg/dL; MICROALBUM/CREATININE RATIO,UR 17.6 ug/mg (<30.0); MICROALBUMIN,URINE 2.1 mg/dL (0-300.0)
== END 2019-02-02 23:59 | disposition home or self-care (01) ==
LOC: LAB.R 08:00
PROVIDERS: ATTEND Physician Assistant Medical
DX: E11.9 Type 2 diabetes mellitus without complications (principal)
CPT/HCPCS: 82043; 82570

== ENCOUNTER 2019-05-03 07:23 | Outpatient (CLI) | payer MEDICARE ==
[2019-05-03 16:20] LABS: BASOPHILS % (AUTO) 0.7 %; EOSINOPHILS # (AUTO) 0.2 10^3/uL (0.0-0.7); EOSINOPHILS % (AUTO) 5.2 %; HGB - HEMOGLOBIN 10.5 g/dL (12.0-16.0); LYMPHOCYTES # (AUTO) 1.6 10^3/uL (1.5-3.5); LYMPHOCYTES % (AUTO) 35.2 %; MEAN CORPUSCULAR HEMOGLOBIN 25.4 pg (27.0-31.0); MEAN CORPUSCULAR HGB CONC 29.7 g/dL (32.0-36.0); MEAN CORPUSCULAR VOLUME 85.3 fL (81.0-99.0); MONOCYTES # (AUTO) 0.3 10^3/uL (0.0-1.0); MONOCYTES % (AUTO) 6.3 %; NEUTROPHILS # (AUTO) 2.3 10^3/uL (1.5-6.6); NEUTROPHILS % (AUTO) 51.7 %; PLT - PLATELET COUNT 194 10^3/uL (130-450); RED BLOOD COUNT 4.14 10^6/uL (4.20-5.40); RED CELL DISTRIBUTION WIDTH 14.9 % (12.0-15.0); WHITE BLOOD COUNT 4.5 x10^3/uL (4.8-10.8)
[2019-05-03 16:37] LABS: ALBUMIN 4.1 g/dL (3.2-5.5); ALBUMIN/GLOBULIN RATIO 1.5 (1.0-2.2); ALKALINE PHOSPHATASE 51 IU/L (42-121); ALT ALANINE AMINOTRANSFERASE 31 IU/L (10-60); AST ASPARTATE AMINOTRANSFERASE 33 IU/L (10-42); BILIRUBIN,TOTAL 0.5 mg/dL (0.2-1.0); BUN - BLOOD UREA NITROGEN 13 mg/dL (6-20); CALCIUM 9.7 mg/dL (8.5-10.3); CARBON DIOXIDE - CO2 29 mmol/L (21-32); CHLORIDE 103 mmol/L (101-111); CHOL/HDL RATIO 4.8 (<4.4); CHOLESTEROL 201 mg/dL; CREATININE 0.6 mg/dL (0.4-1.0); GFR - MDRD 103 (>89); GLUCOSE 170 mg/dL (70-100); HDL CHOLESTEROL 42 mg/dL; LDL CHOLESTEROL,CALCULATED 92 mg/dL; LDL/HDL RATIO 2.2 (<4.4); SODIUM 141 mmol/L (135-145); TOTAL PROTEIN 6.9 g/dL (6.7-8.2); VLDL CHOLESTEROL 67 mg/dL
[2019-05-03 17:18] LABS: HB2 TOTAL 10.6 g/dL; HEMOGLOBIN A1C 0.56 g/dL
== END 2019-05-03 23:59 | disposition home or self-care (01) ==
LOC: LAB.N 07:23
PROVIDERS: ATTEND Physician Assistant Medical
DX: E03.9 Hypothyroidism, unspecified (principal); E11.9 Type 2 diabetes mellitus without complications; E78.5 Hyperlipidemia, unspecified; I10 Essential (primary) hypertension
CPT/HCPCS: 36415; 80053; 80061; 83036; 83721; 84443; 85025

== ENCOUNTER 2019-05-11 12:11 | Outpatient (CLI) | payer MEDICARE ==
--- NOTE | 2019-05-11 15:43 | Mammography Report ---
Reason: LT BREAST CA Procedure Date: 05/11/2019 Accession Number: [id number] / [id number] Procedure: JONAH - Diagnostic Dig Bilat CPT Code: Final Report FULL RESULT: EXAM: Diagnostic Dig Bilat DATE: 05/11/2019 1:23 PM CLINICAL HISTORY: Diagnostic examination. Personal history of breast cancer status post left breast lumpectomy. TECHNIQUE: (B) - Bilateral CC and MLO views were obtained. Left laterally exaggerated CC and left LM views are obtained. COMPARISON: 05/20/2018 and 04/14/2017. PARENCHYMAL PATTERN: (A) - The breast(s) demonstrate(s) scattered fibroglandular densities. FINDINGS: Probably benign postsurgical and posttreatment changes are seen in the left breast. There are no suspicious masses, calcifications, or areas of distortion. IMPRESSION: Probably Benign. BI-RADS category 3. RECOMMENDATION: (12MOS) - Recommend 12 month follow-up exam. BI-RADS CATEGORY: (3) - Probably Benign. STANDARD QUALIFYING STATEMENTS: 1. This examination was not reviewed with the aid of Computer-Aided Detection (CAD). 2. A negative or benign imaging report should not preclude biopsy if clinically suspicious findings are present. 3. Dense breasts may obscure an underlying neoplasm. 4. This examination was reviewed with the aid of 3D breast imaging (tomosynthesis).
== END 2019-05-11 12:12 | disposition home or self-care (01) ==
LOC: DI 12:11
PROVIDERS: ATTEND Internal Medicine Hematology & Oncology
DX: C50.912 Malignant neoplasm of unspecified site of left female breast (principal)
CPT/HCPCS: 77066

== ENCOUNTER 2019-08-06 07:52 | Outpatient (CLI) | payer MEDICARE ==
[2019-08-06 12:17] LABS: BASOPHILS % (AUTO) 0.5 %; EOSINOPHILS # (AUTO) 0.1 10^3/uL (0.0-0.7); EOSINOPHILS % (AUTO) 3.2 %; HGB - HEMOGLOBIN 11.1 g/dL (12.0-16.0); LYMPHOCYTES # (AUTO) 1.7 10^3/uL (1.5-3.5); MEAN CORPUSCULAR HEMOGLOBIN 24.2 pg (27.0-31.0); MEAN CORPUSCULAR HGB CONC 29.5 g/dL (32.0-36.0); MEAN CORPUSCULAR VOLUME 82.1 fL (81.0-99.0); MEAN PLATELET VOLUME 11.4 fL (7.9-10.8); MONOCYTES # (AUTO) 0.4 10^3/uL (0.0-1.0); MONOCYTES % (AUTO) 9.2 %; NEUTROPHILS # (AUTO) 2.1 10^3/uL (1.5-6.6); NEUTROPHILS % (AUTO) 48.4 %; PLT - PLATELET COUNT 181 10^3/uL (130-450); RED BLOOD COUNT 4.58 10^6/uL (4.20-5.40); RED CELL DISTRIBUTION WIDTH 15.2 % (12.0-15.0); WHITE BLOOD COUNT 4.3 x10^3/uL (4.8-10.8)
[2019-08-06 12:32] LABS: HB2 TOTAL 11.8 g/dL; HEMOGLOBIN A1C 0.73 g/dL; HEMOGLOBIN A1C % 7.8 % (4.6-6.2)
== END 2019-08-06 23:59 | disposition home or self-care (01) ==
LOC: LAB.N 07:52
PROVIDERS: ATTEND Physician Assistant Medical
DX: D64.9 Anemia, unspecified (principal); E11.9 Type 2 diabetes mellitus without complications
CPT/HCPCS: 36415; 83036; 85025

== ENCOUNTER 2019-08-23 08:00 | Outpatient (CLI) | payer MEDICARE ==
--- NOTE | 2019-08-24 03:15 | XRAY Report ---
Reason: RIGHT THUMB PAIN Procedure Date: 08/23/2019 Accession Number: [id number] / [id number] Procedure: WCP - Hand 3 View RT CPT Code: Final Report FULL RESULT: EXAM: RIGHT HAND RADIOGRAPHY EXAM DATE: 08/23/2019 02:59 PM. CLINICAL HISTORY: RIGHT THUMB PAIN. COMPARISON: None. TECHNIQUE: 3 views. FINDINGS: Bones: Subtle linear lucencies at the base of the proximal phalanx. Remaining bone architecture and alignment appear intact. Joints: Normal. No subluxations. Soft Tissues: Normal. No soft tissue swelling. IMPRESSION: Questionable findings which may reflect a comminuted nondisplaced intraarticular fracture at the proximal phalanx of thumb. Repeat radiographs in 7-10 days may be considered to evaluate for healing. RADIA
== END 2019-08-23 23:59 | disposition home or self-care (01) ==
LOC: DI.WCP 08:00
PROVIDERS: ATTEND Physician Assistant Medical
DX: M79.644 Pain in right finger(s) (principal)

== ENCOUNTER 2019-08-30 10:58 | Outpatient (CLI) | payer MEDICARE ==
--- NOTE | 2019-08-30 22:37 | SLEEP CARE CONSULTATION ---
Information from patient questionnaire entered by Marisa Smith. I have reviewed and concur with the information entered by Marisa Smith. This document represents the service I personally performed and the decisions made by me, Jaspreet Hogan MD, [facility]. History of Present Illness Previous diagnosis: Mild, Obstructive Sleep Apnea-Hypopnea Syndrome AHI: 6.7 (in 2017) Reason for follow up: annual (last seen 2019) Equipment type: CPAP Equipment obtained from: Samia MCLEAN additional information: To minimize the risk of exposure, we have the option to conduct your visit with me over the phone. I will be able to discuss your health and offer medical advice. If you agree, we will bill your insurance. Do you agree to this telephone service? YES. HPI: Ms. Ramirez was called today for annual follow up of nasal CPAP therapy. She was diagnosed to have mild obstructive sleep apnea-hypopnea syndrome. The patient wears with a nasal mask. She reports using the device nightly and all through the night. The compliance data show usage in 180 out of the past 180 nights, averaging 9.3 hours a night. The > 4 hour compliance rate for the past 180 days is 100%. She complained of no particular problem with the device such as soreness on the face, dry nose, epistaxis, nasal congestion or headache. She thinks that the pressure of 7 8 cmH2O is comfortable. On the CPAP therapy she notices improvement in her sleep quality, and that she wakes up feeling fresher in the morning and more awake/alert during the day. Her notices occasional snore through the CPAP. The average residual AHI is 1.4: and average time in large leak per day is 3 minutes. The 90th percentile pressure is 7.9 cmH2O. CPAP Compliance Data - Data Reviewed with Patient Average duration of nightly device use: 9.4 Compliance rate %: 99.4 (180 days) Current pressure setting (cmH2O): 7-8 Humidity settin Heated hose settin Average residual AHI: 1.4 Average large leak: 3 min 23 sec Subjective Initial [place] Sleepiness Scale score: 8 Allergies and Home Medications Drug allergies reviewed: Yes Home medication list reviewed: Yes Review of Systems Review of systems same as previous: Yes Physical Exam Height: 5 ft 6 in Impression and Plan IMPRESSION: 1. Obstructive Sleep Apnea-Hypopnea Syndrome, mild, with the patient doing well on nasal CPAP therapy. She has excellent compliance and significant clinical improvement. The current pressure appears effective and comfortable. Her mask fits well. Overall, she is very satisfied with treatment and plans to continue with it long-term. No adjustment is necessary today. PLAN: 1. Continue with autoCPAP set at 7 - 8 cmH2O. 2. Try other masks and nasal pillows. 3. Return in one year for follow up or earlier if there is any problem with the treatment. I spent 100% of the 12 minute phone call with the patient with greater than 50% of this spent counseling the patient and coordination of care.
== END 2019-08-30 10:59 | disposition home or self-care (01) ==
LOC: SC 10:58
PROVIDERS: ATTEND Internal Medicine Pulmonary Disease
DX: G47.33 Obstructive sleep apnea (adult) (pediatric) (principal)

== ENCOUNTER 2019-09-02 09:02 | Outpatient (CLI) | payer MEDICARE ==
--- NOTE | 2019-09-02 09:20 | XRAY Report ---
Reason: RIGHT THUMB PAIN Procedure Date: 09/02/2019 Accession Number: [id number] / [id number] Procedure: WCP - Hand 3 View RT CPT Code: Final Report FULL RESULT: EXAM: RIGHT HAND RADIOGRAPHY EXAM DATE: 09/02/2019 09:02 AM. CLINICAL HISTORY: RIGHT THUMB PAIN. COMPARISON: HAND 3 VIEW RT 08/23/2019 2:59 PM. TECHNIQUE: 3 views. FINDINGS: Bones: No fracture or focal bony lesion. Joints: No evidence of dislocation. Joint spacing is maintained. Soft Tissues: No unexpected soft tissue findings. IMPRESSION: No evidence of fracture or dislocation. RADIA
== END 2019-09-02 23:59 | disposition home or self-care (01) ==
LOC: DI.WCP 09:02
PROVIDERS: ATTEND Physician Assistant Medical
DX: M79.644 Pain in right finger(s) (principal)

== ENCOUNTER 2019-09-24 08:00 | Outpatient (CLI) | payer MEDICARE | END 2019-09-24 23:59 | disposition home or self-care (01) | LOC: LAB.R 08:00 | PROVIDERS: ATTEND Nurse Practitioner | DX: N90.89 Other specified noninflammatory disorders of vulva and perineum (principal) | CPT/HCPCS: 81599; 87255 ==

== ENCOUNTER 2019-11-08 08:00 | Outpatient (CLI) | payer MEDICARE ==
[2019-11-08 12:22] LABS: CREATININE 0.5 mg/dL (0.4-1.0)
[2019-11-08 12:44] LABS: HB2 TOTAL 11.5 g/dL; HEMOGLOBIN A1C 0.88 g/dL; HEMOGLOBIN A1C % 9.2 % (4.6-6.2)
== END 2019-11-08 23:59 | disposition home or self-care (01) ==
LOC: LAB.WCP 08:00
PROVIDERS: ATTEND Nurse Practitioner
DX: E11.9 Type 2 diabetes mellitus without complications (principal)
CPT/HCPCS: 36415; 80048; 83036

== ENCOUNTER 2020-01-21 17:52 | Emergency (ER) | payer MEDICARE ==
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
[2020-01-21] MEDS ORDERED: HYDROmorphone 2 MG/ML VIAL IM STA (18:22)
[2020-01-21] MEDS ORDERED: TRIAMCINOLONE 40 MG/ML VIAL IM STA (18:25)
[2020-01-21 19:28] VITALS: BP 133/78
== END 2020-01-21 19:25 | disposition home or self-care (01) ==
LOC: ED 17:52
DX: S16.1XXA Strain of muscle, fascia and tendon at neck level, initial encounter (principal); V49.9XXA Car occupant (driver) (passenger) injured in unspecified traffic accident, initial encounter; Y92.410 Unspecified street and highway as the place of occurrence of the external cause; I10 Essential (primary) hypertension; E11.9 Type 2 diabetes mellitus without complications; Z79.4 Long term (current) use of insulin; Z79.82 Long term (current) use of aspirin
CPT/HCPCS: 20552; 96372; 99283; 99284; J1170

== ENCOUNTER 2020-02-01 10:37 | Emergency (ER) | payer MEDICARE ==
--- NOTE | 2020-02-01 11:30 | ED Physician Documentation ---
History of Present Illness - Stated complaint Stated Complaint: WEAKNESS - Chief complaint Chief Complaint: General - History obtained from History obtained from: Patient - History of Present Illness Timing: Today Pain level max: 0 Pain level now: 0 - Additonal information Additional information: Patient states that she was receiving a massage today for approximately an hour, when she got up to get off of the massage table she felt like her legs were weak. Currently feels better. Otherwise asymptomatic. Nothing makes it better or worse. No changes to her medications. 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 : None Psych: Anxiety, Bipolar disorder Musculoskeletal: None - Past Surgical History Past Surgical History: Yes Ortho: Carpal Tunnel surgery /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 PLOW OPERATOR: section, Tubal ligation, Hysterectomy, Other - Present Medications Home Medications: Ambulatory Orders Medication Instructions Recorded Confirmed Acyclovir 200 mg PO DAILY 12/24/16 02/01/20 Aspirin [Aspirin EC] 81 mg PO DAILY 12/24/16 02/01/20 Benztropine Mesylate 1 mg PO BID 12/24/16 02/01/20 Cholecalciferol [Vitamin D3] 5,000 unit PO DAILY 12/24/16 02/01/20 Cranberry Fruit Extract [Cranberry] 25,000 mg PO DAILY 12/24/16 02/01/20 Fenofibrate 160 mg PO DAILY 12/24/16 02/01/20 Metformin HCl 1,000 mg PO BID 12/24/16 02/01/20 clonazePAM [Clonazepam] 1.5 mg PO PRN PRN 12/24/16 02/01/20 risperiDONE [Risperidone] 7 mg PO BID 12/24/16 02/01/20 Anastrozole 1 mg PO DAILY 02/25/17 02/01/20 Atorvastatin [Lipitor] 10 mg PO DAILY 11/17/18 02/01/20 Oxcarbazepine [Trileptal] 900 mg PO BID 11/17/18 02/01/20 hydrOXYzine pamoate [Hydroxyzine 50 mg PO TID PRN 05/18/19 02/01/20 Pamoate] Cephalexin [Keflex] 500 mg PO Q6H #20 capsule 02/01/20 DULoxetine [Cymbalta] 20 mg PO BID 02/01/20 02/01/20 - Allergies Allergies/Adverse Reactions: Allergies Allergy/AdvReac Type Severity Reaction Status Date / Time meperidine HCl * AdvReac Itching Verified 02/01/20 10:53 [From Demerol] - Social History Does the pt smoke?: No Smoking Status: Never smoker Does the pt drink ETOH?: No Does the pt have substance abuse?: No - Immunizations Immunizations are current?: Yes PD ED PE NORMAL - Vitals Vital signs reviewed: Yes - General General: Alert and oriented X 3, No acute distress, Well developed/nourished - HEENT HEENT: PERRL, Moist mucous membranes - Neck Neck: Supple, no meningeal sign - Cardiac Cardiac: RRR, Strong equal pulses - Respiratory Respiratory: No respiratory distress, Clear bilaterally - Abdomen Abdomen: Soft, Non tender, Non distended - Back Back: No CVA TTP, No spinal TTP - Derm Derm: Warm and dry - Extremities Extremities: No deformity, No edema - Neuro Neuro: Alert and oriented X 3, player development 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 2-12 intact, No motor deficit, No sensory deficit, Other (Full strength in all 4 extremities.) - Psych Psych: Normal mood, Normal affect Results - Vitals Vitals: Vital Signs - 24 hr 02/01/20 02/01/20 02/01/20 10:46 11:30 12:30 Temperature 36.3 C L Heart Rate 87 82 84 Respiratory 16 16 16 Rate Blood Pressure 113/82 H 115/73 133/86 H O2 Saturation 96 98 100 02/01/20 13:00 Temperature Heart Rate 85 Respiratory 16 Rate Blood Pressure 130/75 O2 Saturation 98 Oxygen O2 Source Room air - EKG (time done) 1117 Rate: Rate (enter#) (83) Rhythm: NSR Ladd: Normal Intervals: Normal IN QRS: Normal Ischemia: Normal ST segments - Labs Labs: Laboratory Tests 02/01/20 02/01/20 02/01/20 11:27 11:27 11:27 WBC 5.5 RBC 4.47 Hgb 12.0 Hct 39.5 MCV 88.4 MCH 26.8 L MCHC 30.4 L RDW 15.3 H Plt Count 184 MPV 10.5 Neut # (Auto) 3.3 Lymph # (Auto) 1.5 [place] # (Auto) 0.5 Eos # (Auto) 0.2 Baso # (Auto) 0.0 Absolute Nucleated RBC 0.00 Nucleated RBC % 0.0 VBG pH Ionized Calcium Sodium 138 Potassium 4.8 Chloride 98 L Carbon Dioxide 28 Anion Gap 12.0 BUN 16 Creatinine 0.7 Estimated GFR (MDRD) 86 L Glucose 123 H Calcium 9.4 Phosphorus Magnesium Total Bilirubin 0.7 AST 51 H ALT 36 Alkaline Phosphatase 59 Troponin I High Sens 3.9 Total Protein 7.8 Albumin 4.5 Globulin 3.3 Albumin/Globulin Ratio 1.4 Lipase 40 Urine Color Urine Clarity Urine pH Ur Specific [place] Urine Protein Urine Glucose (UA) Urine Ketones Urine Occult Blood Urine Nitrite Urine Bilirubin Urine Urobilinogen Ur Leukocyte Esterase Urine RBC Urine WBC Ur Squamous Epith Cells Urine Bacteria Ur Microscopic Review Urine Culture Comments 02/01/20 02/01/20 02/01/20 11:27 12:04 12:08 WBC RBC Hgb Hct MCV MCH MCHC RDW Plt Count MPV Neut # (Auto) Lymph # (Auto) [place] # (Auto) Eos # (Auto) Baso # (Auto) Absolute Nucleated RBC Nucleated RBC % VBG pH 7.318 Ionized Calcium 1.16 Sodium Potassium Chloride Carbon Dioxide Anion Gap BUN Creatinine Estimated GFR (MDRD) Glucose Calcium Phosphorus 4.6 Magnesium 2.2 Total Bilirubin AST ALT Alkaline Phosphatase Troponin I High Sens Total Protein Albumin Globulin Albumin/Globulin Ratio Lipase Urine Color DARK YELLOW Urine Clarity CLEAR Urine pH 5.5 Ur Specific [place] >=1.030 H Urine Protein NEGATIVE Urine Glucose (UA) NEGATIVE Urine Ketones NEGATIVE Urine Occult Blood NEGATIVE Urine Nitrite POSITIVE H Urine Bilirubin NEGATIVE Urine Urobilinogen 1 (NORMAL) Ur Leukocyte Esterase TRACE H Urine RBC None Seen Urine WBC 11-25 H Ur Squamous Epith Cells FEW Squamous Urine Bacteria Many H Ur Microscopic Review INDICATED Urine Culture Comments INDICATED - Rads (name of study) cxr Radiology: Prelim report reviewed, EMP read contemporaneously, See rad report (No acute abnormality) PD MEDICAL DECISION MAKING - ED course Complexity details: reviewed results, re-evaluated patient, considered carmenza wang, d/w patient ED course: 59-year-old female with what sounds like weakness in her legs after getting up off the massage table. She does have a UTI and we will treat her for this. Otherwise normal labs. No evidence of arrhythmia. No evidence of cardiac abnormality. Normal strength and sensation here. Patient counseled regarding signs and symptoms for which I believe and urgent re-evaluation would be necessary. Patient with good understanding of and agreement to plan and is comfortable going home at this time This document was made in part using voice recognition software. While efforts are made to proofread this document, sound alike and grammatical errors may occur. Departure - Departure Disposition: Home, Self Care Clinical Impression: Weakness UTI (urinary tract infection) Qualifiers: Urinary tract infection type: acute cystitis Hematuria presence: without hematuria Qualified Code(s): N30.00 - Acute cystitis without hematuria Condition: Good Instructions: ED UTI Cystitis Female Follow-Up: Genevieve Alan ARNP, CYLINDER WORKER-C [Primary Care Provider] - Within 1 week Prescriptions: Cephalexin [Keflex] 500 mg PO Q6H #20 capsule Comments: Take all antibiotics until gone. Return if you worsen. Your laboratory testing does not show any acute abnormalities today. Follow-up with your doctor for further care. Discharge Date/Time: 02/01/20 13:48
[2020-02-01 11:33] LABS: BASOPHILS % (AUTO) 0.7 %; EOSINOPHILS # (AUTO) 0.2 10^3/uL (0.0-0.7); EOSINOPHILS % (AUTO) 2.7 %; LYMPHOCYTES # (AUTO) 1.5 10^3/uL (1.5-3.5); LYMPHOCYTES % (AUTO) 26.9 %; MEAN CORPUSCULAR HEMOGLOBIN 26.8 pg (27.0-31.0); MEAN CORPUSCULAR HGB CONC 30.4 g/dL (32.0-36.0); MEAN CORPUSCULAR VOLUME 88.4 fL (81.0-99.0); MEAN PLATELET VOLUME 10.5 fL (7.9-10.8); MONOCYTES # (AUTO) 0.5 10^3/uL (0.0-1.0); MONOCYTES % (AUTO) 8.8 %; NEUTROPHILS # (AUTO) 3.3 10^3/uL (1.5-6.6); NEUTROPHILS % (AUTO) 60.2 %; PLT - PLATELET COUNT 184 10^3/uL (130-450); RED BLOOD COUNT 4.47 10^6/uL (4.20-5.40); RED CELL DISTRIBUTION WIDTH 15.3 % (12.0-15.0); WHITE BLOOD COUNT 5.5 x10^3/uL (4.8-10.8)
--- NOTE | 2020-02-01 11:42 | XRAY Report ---
PROCEDURE: Chest 1 View X-Ray INDICATIONS: Chest Pain TECHNIQUE: One view of the chest was acquired. COMPARISON: None FINDINGS: Surgical changes and devices: None. Lungs and pleura: No pleural effusions or pneumothorax. Lungs are clear. Mediastinum: Mediastinal contours appear normal. Heart size is normal. Bones and chest wall: No suspicious bony lesions. Overlying soft tissues appear unremarkable. IMPRESSION: No acute cardiopulmonary disease process. Reviewed by: Bernadette Wilson MD, PhD on 02/01/2020 11:41 AM PDT Approved by: Bernadette Wilson MD, PhD on 02/01/2020 11:41 AM PDT Station ID: [id number]
[2020-02-01 11:47] LABS: ALBUMIN 4.5 g/dL (3.2-5.5); ALBUMIN/GLOBULIN RATIO 1.4 (1.0-2.2); BILIRUBIN,TOTAL 0.7 mg/dL (0.2-1.0); CALCIUM 9.4 mg/dL (8.5-10.3); CREATININE 0.7 mg/dL (0.4-1.0); TOTAL PROTEIN 7.8 g/dL (6.7-8.2)
[2020-02-01 12:08] LABS: MAGNESIUM 2.2 mg/dL (1.7-2.8); PHOSPHORUS 4.6 mg/dL (2.5-4.6)
[2020-02-01 12:13] LABS: VBG PH 7.318 (7.31-7.41)
[2020-02-01 12:40] LABS: BILIRUBIN,URINE NEGATIVE (NEGATIVE); GLUCOSE, URINE (UA) NEGATIVE (NEGATIVE); KETONES,URINE (UA) NEGATIVE (NEGATIVE); LEUKOCYTE ESTERASE, URINE TRACE (NEGATIVE); NITRITE,URINE POSITIVE (NEGATIVE); OCCULT BLOOD,URINE NEGATIVE (NEGATIVE); PH,URINE 5.5 PH (5.0-7.5); PROTEIN,URINE NEGATIVE (NEGATIVE); UROBILINOGEN,URINE 1 (NORMAL) E.U./dL (NORMAL)
[2020-02-01 12:41] LABS: CLARITY,URINE CLEAR (CLEAR)
[2020-02-01 12:48] LABS: RBC,URINE None Seen /HPF (0-5); SQUAMOUS EPITHELIAL CELL,UR FEW Squamous (<= Few)
[2020-02-01 12:49] LABS: BACTERIA,URINE Many /HPF (None Seen)
[2020-02-01] MEDS: cephALEXin 250 MG CAPSULE PO STA (13:15)
[2020-02-01 13:49] VITALS: BP 130/75
== END 2020-02-01 13:48 | disposition home or self-care (01) ==
LOC: ED 10:37
DX: R53.1 Weakness (principal); N30.00 Acute cystitis without hematuria; I10 Essential (primary) hypertension; E11.9 Type 2 diabetes mellitus without complications; Z79.84 Long term (current) use of oral hypoglycemic drugs; Z79.82 Long term (current) use of aspirin
CPT/HCPCS: 36415; 71045; 80053; 81001; 82330; 83690; 83735; 84100; 84484; 85025; 87086; 87181; 93005; 99284; A9270; 81003

== ENCOUNTER 2020-02-09 14:07 | Outpatient (CLI) | payer MEDICARE ==
[2020-02-09 18:13] LABS: BASOPHILS % (AUTO) 0.5 %; EOSINOPHILS # (AUTO) 0.1 10^3/uL (0.0-0.7); EOSINOPHILS % (AUTO) 2.5 %; HGB - HEMOGLOBIN 11.3 g/dL (12.0-16.0); LYMPHOCYTES # (AUTO) 2.1 10^3/uL (1.5-3.5); LYMPHOCYTES % (AUTO) 37.7 %; MEAN CORPUSCULAR HEMOGLOBIN 26.7 pg (27.0-31.0); MEAN CORPUSCULAR HGB CONC 29.8 g/dL (32.0-36.0); MEAN CORPUSCULAR VOLUME 89.4 fL (81.0-99.0); MEAN PLATELET VOLUME 10.8 fL (7.9-10.8); MONOCYTES # (AUTO) 0.5 10^3/uL (0.0-1.0); MONOCYTES % (AUTO) 9.5 %; NEUTROPHILS # (AUTO) 2.8 10^3/uL (1.5-6.6); NEUTROPHILS % (AUTO) 49.4 %; PLT - PLATELET COUNT 190 10^3/uL (130-450); RED BLOOD COUNT 4.24 10^6/uL (4.20-5.40); RED CELL DISTRIBUTION WIDTH 15.4 % (12.0-15.0); WHITE BLOOD COUNT 5.6 x10^3/uL (4.8-10.8)
[2020-02-09 18:49] LABS: CALCIUM 9.6 mg/dL (8.5-10.3); CREATININE 0.6 mg/dL (0.4-1.0)
[2020-02-09 18:50] LABS: CREATININE,URINE 126.7 mg/dL; MICROALBUMIN,URINE 1.9 mg/dL (0-300.0)
[2020-02-09 19:55] LABS: HEMOGLOBIN A1c% 7.2 % (4.27-6.07)
== END 2020-02-09 14:08 | disposition home or self-care (01) ==
LOC: LAB.WCP 14:07
PROVIDERS: ATTEND Nurse Practitioner
DX: D64.9 Anemia, unspecified (principal); E11.9 Type 2 diabetes mellitus without complications
CPT/HCPCS: 36415; 80048; 82043; 82570; 83036; 83540; 84466; 85025

== ENCOUNTER 2020-05-11 12:38 | Outpatient (CLI) | payer MEDICARE ==
--- NOTE | 2020-05-11 16:14 | DEXA Report ---
PROCEDURE: Dexa Spine and/or Hip INDICATIONS: POSTMENOPAUSAL TECHNIQUE: Dual energy x-ray absorptiometry (DXA) was performed on a [employer] System. Regions measur ed are the AP Spine, femoral neck, and if needed forearm. COMPARISON: None. FINDINGS: Lumbar Spine: Bone Mineral Density 1.015 g/cm/cm,T score -1.4, mild osteopenia Left Hip: Bone Mineral Density 0.888 g/cm/cm,T score -0.9, normal Left Femoral Neck: Bone Mineral Density 0.774 g/cm/cm, T score -1.9, moderate osteopenia (T score greater or equal to -1.0: NORMAL) (T score from -1.1 to -2.4: OSTEOPENIA) (T score less than or equal to -2.5 to: OSTEOPOROSIS) Impression: Moderate osteopenia within the left femoral neck. Patients with diagnosis of osteoporosis or osteopenia should have regular bone mineral density assess ment. For those eligible for Medicare, routine testing is allowed once every 2 years. Testing frequ ency can be increased for patients who have rapidly progressing disease or for those who are receivin g medical therapy to restore bone mass. Reviewed by: Arely Cross MD on 05/11/2020 4:13 PM PST Approved by: Arely Cross MD on 05/11/2020 4:13 PM PST Station ID: [id number]
== END 2020-05-11 12:39 | disposition home or self-care (01) ==
LOC: DI 12:38
PROVIDERS: ATTEND Internal Medicine Hematology & Oncology
DX: M85.88 Other specified disorders of bone density and structure, other site (principal)

== ENCOUNTER 2020-05-12 08:00 | Outpatient (CLI) | payer MEDICARE ==
[2020-05-12 13:31] LABS: HEMOGLOBIN A1c% 5.8 % (4.27-6.07)
[2020-05-12 13:34] LABS: % IRON SATURATION 8 % (20-50); ALBUMIN 4.3 g/dL (3.2-5.5); ALBUMIN/GLOBULIN RATIO 1.4 (1.0-2.2); ALKALINE PHOSPHATASE 49 IU/L (42-121); ALT ALANINE AMINOTRANSFERASE 35 IU/L (10-60); AST ASPARTATE AMINOTRANSFERASE 37 IU/L (10-42); BILIRUBIN,TOTAL 0.6 mg/dL (0.2-1.0); BUN - BLOOD UREA NITROGEN 14 mg/dL (6-20); CALCIUM 9.6 mg/dL (8.5-10.3); CARBON DIOXIDE - CO2 28 mmol/L (21-32); CHLORIDE 103 mmol/L (101-111); CHOL/HDL RATIO 5.4 (<4.4); CHOLESTEROL 209 mg/dL; CREATININE 0.6 mg/dL (0.4-1.0); GLUCOSE 131 mg/dL (70-100); HDL CHOLESTEROL 39 mg/dL; IRON 36 ug/dL (28-170); LDL CHOLESTEROL,CALCULATED 104 mg/dL; LDL/HDL RATIO 2.7 (<4.4); SODIUM 142 mmol/L (135-145); TOTAL IRON BINDING CAPACITY 465 ug/dL (250-450); TOTAL PROTEIN 7.3 g/dL (6.7-8.2); TRANSFERRIN 332 mg/dL (192-382); VLDL CHOLESTEROL 66 mg/dL
== END 2020-05-12 23:59 | disposition home or self-care (01) ==
LOC: LAB.WCP 08:00
PROVIDERS: ATTEND Nurse Practitioner
DX: E03.9 Hypothyroidism, unspecified (principal); E78.5 Hyperlipidemia, unspecified; I10 Essential (primary) hypertension; E11.9 Type 2 diabetes mellitus without complications; D64.9 Anemia, unspecified
CPT/HCPCS: 36415; 80053; 80061; 83036; 83540; 83721; 84443; 84466

== ENCOUNTER 2020-06-13 08:34 | Outpatient (CLI) | payer MEDICARE ==
--- NOTE | 2020-06-14 07:25 | Mammography Report ---
BILATERAL DIGITAL DIAGNOSTIC MAMMOGRAM 3D/2D: 06/13/2020 CLINICAL: Personal history of left breast cancer. Comparison is made to exams dated: 05/11/2019 mammogram, 05/20/2018 mammogram - [facility], 01/02/2018 ultrasound - [facility], 04/16/2017 ultrasound, and 04/14/2017 mammogr am - [facility]. There are scattered fibroglandular elements in both breasts. There are benign post operative findings in the left breast. No significant masses, calcifications, or other findings are seen in either breast. There has been no significant interval change. IMPRESSION: BENIGN There is no mammographic evidence of malignancy. A 1 year screening mammogram is recommended. This exam was interpreted at Station ID: [id number]. NOTE: For mammograms, a report in lay terms will be sent to the patient. Approximately 15% of breast malignancies will not be visualized mammographically. In the management of a palpable breast mass, a negative mammogram must not discourage biopsy of a clinically suspicious lesion. Electronically Signed By: Asad casey/siva:06/13/2020 13:03:56 ACR BI-RADS Category 2: Benign Finding(s) 3342F PARENCHYMAL PATTERN: (A) - The breast(s) demonstrate(s) scattered fibroglandular densities. BI-RADS CATEGORY: (2) - 2 RECOMMENDATION: (ANNUAL) - Recommend routine annual screening mammography. [id number] 1 year screening LATERALITY: (B)
== END 2020-06-13 08:35 | disposition home or self-care (01) ==
LOC: DI 08:34
PROVIDERS: ATTEND Internal Medicine Hematology & Oncology
DX: Z08 Encounter for follow-up examination after completed treatment for malignant neoplasm (principal); Z85.3 Personal history of malignant neoplasm of breast

== ENCOUNTER 2020-08-23 07:05 | Outpatient (CLI) | payer MEDICARE ==
[2020-08-23 12:22] LABS: ALBUMIN 4.2 g/dL (3.2-5.5); ALBUMIN/GLOBULIN RATIO 1.5 (1.0-2.2); BILIRUBIN,TOTAL 0.5 mg/dL (0.2-1.0); CALCIUM 9.2 mg/dL (8.5-10.3); CREATININE 0.5 mg/dL (0.4-1.0); POTASSIUM 4.1 mmol/L (3.5-5.0)
[2020-08-23 12:45] LABS: ESTIMATED AVERAGE GLUCOSE 108 mg/dL (70-100); HEMOGLOBIN A1c% 5.4 % (4.27-6.07)
== END 2020-08-23 23:59 | disposition home or self-care (01) ==
LOC: LAB.WCP 07:05
PROVIDERS: ATTEND Nurse Practitioner
DX: E11.9 Type 2 diabetes mellitus without complications (principal); E78.5 Hyperlipidemia, unspecified; I10 Essential (primary) hypertension
CPT/HCPCS: 36415; 80053; 83036

== ENCOUNTER 2020-08-28 11:09 | Outpatient (CLI) | payer MEDICARE ==
--- NOTE | 2020-08-28 13:51 | SLEEP CARE CONSULTATION ---
Information from patient questionnaire entered by Marisa Smith. I have reviewed and concur with the information entered by Marisa Smith. This document represents the service I personally performed and the decisions made by me, Jaspreet Hogan MD, [facility]. History of Present Illness Service Date and Time: 08/28/2020 1109 Previous diagnosis: Mild, Obstructive Sleep Apnea-Hypopnea Syndrome AHI: 6.7 (in 2017) Reason for follow up: annual (last seen 08/2019) Equipment type: CPAP Equipment obtained from: [employer] Mask style: Nasal Prior sleep studies: Yes Year and Where: 2016 - [facility] ; - in [place] Type of Sleep Study: Polysomnography HPI additional information: HPI: Ms. Ramirez returned today for follow up of nasal CPAP therapy. She was diagnosed to have mild obstructive sleep apnea-hypopnea syndrome. The patient went to [facility] for the equipment and was fitted with ResMed P10 nasal pillows. She reports using the device nightly and all through the night. The compliance report shows usage in 180 nights out of the past 180 nights, averaging 6.6 hours a night. She complained of some dryness but no particular problem with the device such as soreness on the face, dry nose, epistaxis, nasal congestion or headache. She thinks that the pressure of 7 - 8 cmH2O is comfortable. On the CPAP therapy she notices improvement in her sleep quality, and that she wakes up feeling fresher in the morning and more awake/alert during the day. The [place] Sleepiness Scale score 3. The average residual AHI is 1.9; and air leak, 3 minutes.. CPAP Compliance Data - Data Reviewed with Patient Average duration of nightly device use: 6 hr 37 min Compliance rate %: 89.4 (180 days) Current pressure setting (cmH2O): 7-8 Humidity settin Heated hose settin Average residual AHI: 1.9 Average large leak: 3 min 50 sec Subjective Missed days of use due to: reports: other (can't sleep) Patient concerns: reports: other (snore while using device) Initial [place] Sleepiness Scale score: 8 (in 2017) Current [place] Sleepiness Scale score: 3 Allergies and Home Medications Drug allergies reviewed: Yes Home medication list reviewed: Yes Physical Exam Height: 5 ft 6 in Weight: 191 lb Body Mass Index: 30.8 BMI Classification: Obese Impression and Plan IMPRESSION: 1. Obstructive Sleep Apnea-Hypopnea Syndrome, mild (AHI was 6.7) with the patient doing well on nasal CPAP therapy. She has excellent compliance and significant clinical improvement. The current pressure appears effective and comfortable. Overall, she is very satisfied with treatment and plans to continue with it long-term. No adjustment is necessary today. I showed her newer nasal masks and pillows, but she was not interested. 2. Insomnia due to irregular sleep-wake pattern. The compliance report reveals scattered usage throughout day and night. I informed her that until she develops a regular sleep-wake habit, her insomnia cannot be treated. PLAN: 1. Continue with nasal CPAP therapy with 7 - 8 cmH2O. 2. Try to lose weight 3. Return in one year for follow up or earlier if there is any problem with the treatment. Follow up recommended for: Weight management Visit Type: In Office Time Spent with Patient (minutes): 20 Provider Statement: I spent 100% of the Face to Face Visit with the patient with greater than 50% spent counseling the patient and coordination of care.
--- OUTSIDE RECORDS SUMMARY | 2020-09-05 21:19 | EXTERNAL MEDICAL SUMMARY RPT | Continuity of Care Document ---
: Demographics Phone Unavailable Preferred Language Unknown Marital Status Unknown Holiness Affiliation Unknown Race Unknown Ethnic Group Unknown Author Organization [place] Address [address] [place] [address] Phone Medications date description facility [id number] Clonazepam 1 MG Oral Tablet [facility] pitin 20200609 duloxetine 30 MG Enteric Coated Capsule [facility] Social History date description facility [id number]
== END 2020-08-28 11:10 | disposition home or self-care (01) ==
LOC: SC 11:09
PROVIDERS: ATTEND Internal Medicine Pulmonary Disease
DX: G47.33 Obstructive sleep apnea (adult) (pediatric) (principal); G47.09 Other insomnia; E66.9 Obesity, unspecified; Z68.30 Body mass index [BMI] 30.0-30.9, adult
CPT/HCPCS: 99213; G0463; 99212

== ENCOUNTER 2020-11-14 08:00 | Outpatient (CLI) | payer MEDICARE ==
[2020-11-14 12:40] LABS: ESTIMATED AVERAGE GLUCOSE 120 mg/dL (70-100); HEMOGLOBIN A1c% 5.8 % (4.27-6.07)
[2020-11-14 12:43] LABS: ALBUMIN 4.2 g/dL (3.2-5.5); ALBUMIN/GLOBULIN RATIO 1.4 (1.0-2.2); ALKALINE PHOSPHATASE 62 IU/L (42-121); ALT ALANINE AMINOTRANSFERASE 44 IU/L (10-60); AST ASPARTATE AMINOTRANSFERASE 46 IU/L (10-42); BILIRUBIN,TOTAL 0.5 mg/dL (0.2-1.0); BUN - BLOOD UREA NITROGEN 9 mg/dL (6-20); CALCIUM 9.4 mg/dL (8.5-10.3); CARBON DIOXIDE - CO2 28 mmol/L (21-32); CHLORIDE 103 mmol/L (101-111); CHOLESTEROL 201 mg/dL; CREATININE 0.6 mg/dL (0.4-1.0); GFR - MDRD 103 (>89); GLUCOSE 184 mg/dL (70-100); HDL CHOLESTEROL 40 mg/dL; LDL CHOLESTEROL,CALCULATED 100 mg/dL; LDL/HDL RATIO 2.5 (<4.4); POTASSIUM 4.3 mmol/L (3.5-5.0); SODIUM 142 mmol/L (135-145); TOTAL PROTEIN 7.3 g/dL (6.7-8.2); TRIGLYCERIDES 304 mg/dL; VLDL CHOLESTEROL 61 mg/dL
== END 2020-11-14 23:59 | disposition home or self-care (01) ==
LOC: LAB.WCP 08:00
PROVIDERS: ATTEND Family Medicine
DX: E11.9 Type 2 diabetes mellitus without complications (principal); E78.5 Hyperlipidemia, unspecified
CPT/HCPCS: 36415; 80053; 80061; 83036; 83721